=== PATIENT | male | born 1965 | race Caucasian/White ===

== ENCOUNTER 2025-03-28 10:46 | Emergency (ER) | payer OTHER, SELFPAY ==
[2025-03-28 10:55] VITALS: BP 134/82
--- NOTE | 2025-03-28 11:22 | ED.GENMED ---
History of Present Illness
General
Chief Complaint: Male Genito-Urinary Symptoms
Source: patient
Time Seen by Provider: 03/28/25 11:02
History of Present Illness
History of Present Illness:
59-year-old male with past medical history of previous prostate cancer status post prostatectomy presenting to the ER for priapism which he states has been since at least 3 AM last night, attempted Sudafed and phenylephrine at home which he states
did not help but has had this in the past when it normally has helped. States he was not in too much pain up until the last 20 minutes or so but did not take anything for pain prior to arrival. He denies any urinary symptoms at this time. He
normally follows with urology at [facility]
Past History
Past History
ED Past Medical History: Cancer and Psychiatric
ED Past Surgical History: Orthopedic and Urological
Social History
Tobacco: Non-smoker
Alcohol: Occasional
Drug: None
Personal: Partner
Living: with family
Review of Systems
Review of Systems
All Other Systems: ROS reviewed and negative except as documented in HPI and ROS
Phy Exam
Physical Exam
Physical Exam:
GENERAL: Alert , in no apparent distress
EYE: conjunctiva clear
Head: Normocephalic atraumatic
NECK: Supple,
ENT: mmm.
LUNGS: no acute respiratory distress
Genitourinary: Priapism noted, no testicular edema or erythema/tenderness, no hernia
NEUROLOGICAL: Alert and oriented
SKIN: Warm and dry, skin intact.
MUSCULOSKELETAL: well perfused.
PSYCH: Normal and appropriate interaction.
Scores
Heart Failure Risk
Heart Failure Risk Score: Not Applicable
Heart Score for Chest Pain Patients
STEMI patient?: Not applicable
Withdrawal Assessment of Alcohol
Withdrawal Assessment Completed?: Not applicable
Course
Orders/Labs/Results
Orders:
Orders
03/28/25 11:10
Ibuprofen [Motrin] 600 mg PO NOW STA
03/28/25 11:15
Phenylephrine [Dany-Synephrine] 5 mg 0.9% Sodium Chloride 50 ml [Nss] 19.5 ml Syringe [Syringe Non-Pump] 0 ml INTRACAVER ONCE PRN
Vital Signs
Initial and Last Documented VS:
Initial Vital Signs
Temp Pulse Resp BP Pulse Ox
98.2 F 86 16 134/82 98
03/28/25 10:55 03/28/25 10:55 03/28/25 10:55 03/28/25 10:55 03/28/25 10:55
Last Documented Vital Signs
Temp Pulse Resp BP Pulse Ox
98.2 F 59 16 117/54 99
03/28/25 10:55 03/28/25 13:14 03/28/25 13:14 03/28/25 13:14 03/28/25 13:14
MDM/Problems Addressed
Differential Diagnosis Includes:
Priapism
Phimosis
Paraphimosis
Medication side effect
No symptoms to suggest UTI/STI
MDM/Problems Addressed:
59-year-old male presenting to the ER for evaluation of priapism. Attempted medications that he has normally had relief with at home but today unfortunately did not have any relief. Will consult with urology who will likely need to come to the ER
to evaluate patient.
*Pulse Oximetry
SaO2: 98
Oxygen Mode of Delivery: Room air
Patient hypoxic: no
*Critical Care Note
Total Time (30-74mins, 75-104mins- exclusive of procedures): Not Applicable
Patient Management
Discussion with other providers: Manager Of Photography
Escalation/DeEscalation of care consider admission/obs:
1120: Urology to come evaluate the patient, requesting urology cart with lidocaine to the bedside, they are ordering phenylephrine.
Urology successfully treated the priapism and patient has full resolution of his symptoms. Stable for discharge home and outpatient management. Aware of return precautions to the ER
ED Attending Note
-
Portions of this chart may have been created with voice recognition software.� Occasional wrong word or��sound alike� substitutions may have occurred due to the inherent limitations of voice recognition software.
Discharge Plan
Departure
Patient Disposition: Home (Routine Discharge)
Date of Disposition: 03/28/25
Time of Disposition: 12:57
Patient with high blood pressure during this ER visit?: No
Discharge Problem:
Priapism
Instructions: Priapism
Prescriptions:
No Action
zolpidem 10 MG tablet
10 mg PO HS
azelastine 0.05 % drops
1 drp BOTH EYES BIDPRN PRN (Reason: ALLERGIES)
clonazepam 0.5 mg tablet
0.5 mg PO TIDPRN PRN (Reason: ANXIETY)
pravastatin 10 mg tablet
10 mg PO DAILY
ibuprofen 200 mg Tablet
400 mg PO Q8H PRN (Reason: PAIN)
pseudoephedrine HCl [Sudafed] 30 mg Tablet
120 mg PO ONCE PRN (Reason: ALLERGIES)
atomoxetine 10 mg capsule
10 mg PO DAILY
tadalafil 5 mg tablet
5 mg PO DAILY
buprenorphine-naloxone 2-0.5 mg film
1 film sublingual BID
Interventions
Interventions:
*Risk Screen - Suicide Last Done: 03/28/25 10:55
*General Assessment Last Done: 03/28/25 13:14
*Neglect/Abuse Screening Last Done: 03/28/25 10:55
*ED- Fall Risk Assessment Last Done: 03/28/25 11:40
*ED COVID-19 Vaccine History Last Done: 03/28/25 11:40
*Nursing Disposition Last Done: 03/28/25 13:14
ED-Male Genitourinary Assessment Last Done: 03/28/25 11:40
Discharge Date and Time
Print Language: TAJIK
[2025-03-28] MEDS: MOTRIN 600 MG PO (11:24)
--- NOTE | 2025-03-28 12:37 | CONS.URO ---
Consultation
-
Date/Time Consultation Performed: 03/28/25 1130
Performing Provider: Peffer
Reason for Consultation: Priapism
Medical History
History of Present Illness
59M hx Peyronies's disease, ED, using bimix injections
Prior hx of priapism managed at [facility]
Presented with erection for about 9 hours before he fell asleep last night
Prev responded to pseudafed which he took at home without success
Has needed intracorporal injections in the past
Hx of Peyronie's disease s/p Xiaflex
Past Medical History
Past Medical History: Other (ED, Peyronie's disease)
Past Surgical History: None
Family History
Family History: Reviewed & Not Pertinent
Allergies/Home Medications
Allergies
Allergy/AdvReac Type Severity Reaction Status Date / Time
No Known Allergies Allergy Verified 03/28/25 10:58
Home Medications
�Medication �Instructions �Recorded �Confirmed �Type
zolpidem 10 mg tablet 10 mg PO HS Sleep 09/20/20 03/28/25 History
atomoxetine 10 mg capsule 10 mg PO DAILY Mental 03/28/25 03/28/25 History
Health/Anxiety
azelastine 0.05 % eye drops 1 drp BOTH EYES BIDPRN PRN 03/28/25 03/28/25 History
ALLERGIES
buprenorphine 2 mg-naloxone 0.5 mg 1 film sublingual BID OPIOD USE 03/28/25 03/28/25 History
sublingual film DISORDER
clonazepam 0.5 mg tablet 0.5 mg PO TIDPRN PRN ANXIETY 03/28/25 03/28/25 History
ibuprofen 200 mg tablet 400 mg PO Q8H PRN PAIN 03/28/25 03/28/25 History
pravastatin 10 mg tablet 10 mg PO DAILY High Cholesterol 03/28/25 03/28/25 History
pseudoephedrine HCl 30 mg tablet 120 mg PO ONCE PRN ALLERGIES 03/28/25 03/28/25 History
(Sudafed)
tadalafil 5 mg tablet 5 mg PO DAILY Urinary Issue 03/28/25 03/28/25 History
Physical Exam
Vital Signs
Vital Signs
Temp Pulse Resp BP Pulse Ox
98.2 F 86 16 134/82 98
03/28/25 10:55 03/28/25 10:55 03/28/25 10:55 03/28/25 10:55 03/28/25 11:26
Physical Exam
General: Well Developed, Well Nourished and No Apparent Distress
Respiratory: Non Labored Respirations
GI: Soft and Non Tender
Genito-urinary: Other (painful erection)
Psych: Calm and Intact Judgement
Assessment / Plan
-
59M with ischemic priapism due to at home intracorporal injectable medications
- 16Ga angiocath placed into R corporal body with return of ischemic blood
- Saline irrigation performed to encourage detumescence
- Intracorporal injection of phenylephrine 250mcg/mL x4mL for total 1mg dose administered
- Observed for 1 hour, BP and HR normal and no recurrent erection
- Discharge
- Lower dose of bimix
- Avoid intercourse 2 weeks
Data Reviewed
-
Total Time Spent with Patient (in minutes): 80
[2025-03-28 13:14] VITALS: BP 117/54
== END 2025-03-28 13:14 | disposition home or self-care (01) ==
LOC: EMR 10:46
PROVIDERS: EMERGENCY PHYSICIAN Emergency Medicine; OTHER PHYSICIAN Urology
DX: N48.30 Priapism, unspecified (principal); Z85.46 Personal history of malignant neoplasm of prostate; Z90.79 Acquired absence of other genital organ(s)
CPT/HCPCS: 54220; 99284

== ENCOUNTER 2025-04-24 07:05 | Emergency (ER) | payer OTHER, SELFPAY ==
[2025-04-24 07:08] VITALS: BP 140/93
--- NOTE | 2025-04-24 07:20 | EDRN ---
Dr. Yen aware that the pt is in the room waiting to be seen, no new orders received at this time
--- NOTE | 2025-04-24 07:52 | EDRN ---
Yuri ALVES currently at the pts bedside
[2025-04-24 07:54] VITALS: BP 133/110
[2025-04-24 07:55] VITALS: BP 133/110; BMI 22.5
--- NOTE | 2025-04-24 08:04 | ED.GENMED ---
History of Present Illness
General
Chief Complaint: Male Genito-Urinary Symptoms
Source: patient
Exam Limitations: none
Time Seen by Provider: 04/24/25 07:57
History of Present Illness
History of Present Illness:
59-year-old male with remote history of prostate cancer measured at [facility], history of erectile dysfunction, priapism and pyrone's disease presents with sustained erection for the past approximately 5 to 6 hours. He took Sudafed at home.
It was painful at home and since waiting here in the waiting room he states his erection has improved slightly. He denies any significant pain currently. No other complaints at this time
Past History
Past History
ED Past Medical History: Cancer and Psychiatric
ED Past Surgical History: Orthopedic and Urological
Social History
Tobacco: Non-smoker
Alcohol: Occasional
Drug: None
Personal: Partner
Living: with family
Phy Exam
Physical Exam
Physical Exam:
General: Well-appearing male no acute respiratory distress
HEENT: Normal cephalic atraumatic
Abdomen soft nontender nondistended
exam: Semierect penis not tender to palpation
Course
Orders/Labs/Results
Orders:
Orders
04/24/25 08:21
Phenylephrine [Dany-Synephrine] 5 mg 0.9% Sodium Chloride 50 ml [Nss] 19.5 ml Syringe [Syringe Non-Pump] 0 ml INTRACAVER ONCE PRN
Vital Signs
Initial and Last Documented VS:
Initial Vital Signs
Temp Pulse Resp BP Pulse Ox
97.7 F 82 18 140/93 97
04/24/25 07:08 04/24/25 07:08 04/24/25 07:08 04/24/25 07:08 04/24/25 07:08
Last Documented Vital Signs
Temp Pulse Resp BP Pulse Ox
98.5 F 77 20 133/110 100
04/24/25 07:55 04/24/25 07:55 04/24/25 07:55 04/24/25 07:55 04/24/25 08:06
MDM/Problems Addressed
Differential Diagnosis Includes:
Patient with priapism. He has a history of such. He uses injections at home to obtain an erection. He tried Sudafed and notes slight improvement. He is required drainage in the past. He is required phenylephrine injections in the past. He was
most recently here March 28 and received phenylephrine. Reached out to urology
*Pulse Oximetry
SaO2: 100
Oxygen Mode of Delivery: Room air
Patient hypoxic: no
*Critical Care Note
Total Time (30-74mins, 75-104mins- exclusive of procedures): Not Applicable
Update Note
Update Note:
Initially reached out to urology who is going to come in and administer a phenylephrine injection. This was ordered. Patient was reevaluated multiple times and at this point the priapism has resolved on its own. Patient denies any current pain he
feels like everything is back to normal. Notified urology they held off on seeing him. Patient will follow-up with his urologist of record for adjustment of his injections that he takes.
ED Attending Note
-
Portions of this chart may have been created with voice recognition software.� Occasional wrong word or��sound alike� substitutions may have occurred due to the inherent limitations of voice recognition software.
Discharge Plan
Departure
Patient Disposition: Home (Routine Discharge)
Date of Disposition: 04/24/25
Time of Disposition: 08:58
Patient with high blood pressure during this ER visit?: No
Discharge Problem:
Priapism
Instructions: Priapism
Prescriptions:
No Action
zolpidem 10 MG tablet
10 mg PO HS
azelastine 0.05 % drops
1 drp BOTH EYES BIDPRN PRN (Reason: ALLERGIES)
clonazepam 0.5 mg tablet
0.5 mg PO TIDPRN PRN (Reason: ANXIETY)
pravastatin 10 mg tablet
10 mg PO DAILY
ibuprofen 200 mg Tablet
400 mg PO Q8H PRN (Reason: PAIN)
pseudoephedrine HCl [Sudafed] 30 mg Tablet
120 mg PO ONCE PRN (Reason: ALLERGIES)
atomoxetine 10 mg capsule
10 mg PO DAILY
tadalafil 5 mg tablet
5 mg PO DAILY
buprenorphine-naloxone 2-0.5 mg film
1 film sublingual BID
Referrals:
UNKNOWN - PT DOES,NOT KNOW [Family Provider]
Activity Restrictions/Additional Instructions:
Please follow-up with your urologist for potential dose adjustment of your injections. Return if needed
Interventions
Interventions:
*Risk Screen - Suicide Last Done: 04/24/25 07:55
*General Assessment Last Done: 04/24/25 07:55
*Neglect/Abuse Screening Last Done: 04/24/25 07:55
*ED- Fall Risk Assessment Last Done: 04/24/25 07:55
*ED COVID-19 Vaccine History Last Done: 04/24/25 07:55
ED-Male Genitourinary Assessment Last Done: 04/24/25 07:55
Discharge Date and Time
Print Language: NEPALI
== END 2025-04-24 09:02 | disposition home or self-care (01) ==
LOC: EMR 07:05
PROVIDERS: EMERGENCY PHYSICIAN Emergency Medicine
DX: N48.30 Priapism, unspecified (principal); Z85.46 Personal history of malignant neoplasm of prostate
CPT/HCPCS: 99281

== ENCOUNTER 2025-06-09 03:01 | Emergency (ER) | payer OTHER, SELFPAY ==
[2025-06-09] VITALS (9 sets, daily range): BP systolic 120–153; BP diastolic 83–101; BMI 20.8
[2025-06-09] MEDS: SUDAFED 60 MG PO (05:20)
[2025-06-09] MEDS: PHATP 5 UNIT INTRACAVER (06:00)
[2025-06-09] MEDS: DILAUDID 0.5 MG IV (06:12)
--- NOTE | 2025-06-09 06:35 | ED.GENMED ---
History of Present Illness
General
Chief Complaint: Male Genito-Urinary Symptoms
Source: patient and previous hospital records (Previous ED visits x 2 in March for similar complaint)
Exam Limitations: none
Time Seen by Provider: 06/09/25 05:07
Nursing documentation reviewed up to this point in time: agreed with
History of Present Illness
History of Present Illness:
This is a 59-year-old gentleman with prior history of prostate cancer, Peyronie's disease, ED, using Bimix injections, follows with specialist at [facility]. Prior history of priapism with ED visit here March 28 for similar complaint.
Required urgent urology evaluation, phenylephrine injections for detumescence. At that time recommended to decrease his Bimix dose and despite doing so returns April 24 with similar episode of priapism that resolved with Sudafed and ice.
He has done well since then until tonight when he injected his usual dose of by mix at 11 PM and has had persistent priapism since then. He did take a dose of Sudafed a few hours ago and has applied ice, thus far no improvement.
Past History
Past History
ED Past Medical History: Cancer (Prostate cancer), Psychiatric and Other (Peyronie's disease, erectile dysfunction, prior episodes of priapism after BiMix injections)
ED Past Surgical History: Orthopedic and Urological
Social History
Tobacco: Non-smoker
Alcohol: Occasional
Drug: None
Personal: Partner
Living: with family
Family History
Family History: Other (Noncontributory)
Phy Exam
Physical Exam
Physical Exam:
GENERAL: 59-year-old gentleman appears his stated age, awake and alert, appears mildly uncomfortable.
EYE: anicteric
NECK: Supple, nontender, no meningismus, no significant adenopathy.
ENT: oral mucosa is moist. No rhinorrhea.
CARDIAC: Regular rate and rhythm. no murmur.
LUNGS: Clear breath sounds bilaterally, no acute respiratory distress, no wheezes/rales/rhonchi
ABDOMEN: Soft, nondistended, without focal tenderness, no r/g, no cvat. normoactive BS.
: Painful erection
NEUROLOGICAL: Alert and oriented x3, no focal neuro deficits. Gait is randle and steady.
SKIN: Warm and dry, normal color, skin intact. No rash.
MUSCULOSKELETAL: No C/C/E. peripheral pulses are full and equal b/l. No palpable tenderness.
PSYCH: Normal and appropriate interaction.
Course
Orders/Labs/Results
Orders:
Orders
06/09/25 05:08
Pseudoephedrine [Sudafed] 60 mg PO NOW STA
06/09/25 05:[address] See Dose Instructions INTRACAVER NOW STA
06/09/25 05:37
Phenylephrine [Dany-Synephrine] 5 mg 0.9% Sodium Chloride 50 ml [Nss] 19.5 ml Syringe [Syringe Non-Pump] 0 ml INTRACAVER ONCE PRN
06/09/25 06:11
HYDROmorphone [Dilaudid] 0.5 mg .ROUTE .STK-MED ONE
06/09/25 06:12
HYDROmorphone [Dilaudid] 0.5 mg IV NOW STA
Vital Signs
Initial and Last Documented VS:
Initial Vital Signs
Temp Pulse Resp BP Pulse Ox
97.8 F 101 16 134/91 99
06/09/25 03:11 06/09/25 03:11 06/09/25 03:11 06/09/25 03:11 06/09/25 03:11
Last Documented Vital Signs
Temp Pulse Resp BP Pulse Ox
97.7 F 74 20 136/87 99
06/09/25 05:19 06/09/25 06:15 06/09/25 06:15 06/09/25 06:15 06/09/25 06:00
MDM/Problems Addressed
Differential Diagnosis Includes:
Patient presents with painful erection/priapism since 11 PM after by next injection. Similar episode of priapism in the past.
Thus far no improvement after dose of Sudafed at home and localized.
Will continue ice, give an additional dose of Sudafed and will urgently consult urology.
MDM/Problems Addressed:
Acute priapism
Chronic conditions affecting care:
Prior history of prostate cancer, erectile dysfunction, Peyronie's disease
Acute Exacerbation and/or Progression of Chronic Illness:
Recurrent priapism related to home intra corporal injectable medication
*Pulse Oximetry
SaO2: 99
Oxygen Mode of Delivery: Room air
Patient hypoxic: no
*Critical Care Note
Total Time (30-74mins, 75-104mins- exclusive of procedures): Not Applicable
Update Note
Update Note:
05:20
Urology, Dr. Sorto notified.
Will evaluate at bedside. Phenylephrine ordered, to be mixed by pharmacy
ED Attending Note
-
Portions of this chart may have been created with voice recognition software.� Occasional wrong word or��sound alike� substitutions may have occurred due to the inherent limitations of voice recognition software.
Discharge Plan
Departure
Discharge Problem:
acute priapism
Instructions: Priapism
Prescriptions:
No Action
zolpidem 10 MG tablet
10 mg PO HS
azelastine 0.05 % drops
1 drp BOTH EYES BIDPRN PRN (Reason: ALLERGIES)
clonazepam 0.5 mg tablet
0.5 mg PO TIDPRN PRN (Reason: ANXIETY)
pravastatin 10 mg tablet
10 mg PO DAILY
ibuprofen 200 mg Tablet
400 mg PO Q8H PRN (Reason: PAIN)
pseudoephedrine HCl [Sudafed] 30 mg Tablet
120 mg PO ONCE PRN (Reason: ALLERGIES)
atomoxetine 10 mg capsule
10 mg PO DAILY
tadalafil 5 mg tablet
5 mg PO DAILY
buprenorphine-naloxone 2-0.5 mg film
1 film sublingual BID
Referrals:
UNKNOWN,NO INTERVIEW [Family Provider]
Interventions
Interventions:
*Risk Screen - Suicide Last Done: 06/09/25 03:14
*General Assessment Last Done: 06/09/25 03:14
*Neglect/Abuse Screening Last Done: 06/09/25 03:14
*ED- Fall Risk Assessment Last Done: 06/09/25 03:14
*ED COVID-19 Vaccine History Last Done: 06/09/25 03:14
*ED Influenza Vaccine History Last Done: 06/09/25 03:14
ED-Male Genitourinary Assessment Last Done: 06/09/25 03:46
Discharge Date and Time
Print Language: THAI
--- NOTE | 2025-06-09 07:55 | CON.MD ---
Consultation - Medical
-
see dictated note
pt with recurrent priapsim
verbal consent obtained for aspiration/inj
under sterile conditions- right corporal body accessed- 30cc of old blood aspirated- 1ml of phenyleph mix injected slowly while pt on monitor
tolerated well
pt observe for 1hr- penis soft- small hematoma
REVIEWED OPTIONS WITH PT THIS IS A RECURRENT PROBLEMS AND THE RISK OF CONTINUED PRESENTATION WITH PRIAPISM
he will review with established urologist in [facility]
Consultation
-
Date/Time Consultation Requested: 06/09/25 at 5:15am
Date/Time Consultation Performed: 06/09/25 at 5:45am
Requesting Provider: Dr Coyle
Performing Provider: Dr Sorto
Reason for Consultation: priapism
== END 2025-06-09 08:21 | disposition home or self-care (01) ==
LOC: EMR 03:01
PROVIDERS: EMERGENCY PHYSICIAN Emergency Medicine; OTHER PHYSICIAN Specialist
DX: N48.30 Priapism, unspecified (principal); Z85.46 Personal history of malignant neoplasm of prostate; Z90.79 Acquired absence of other genital organ(s); Z98.1 Arthrodesis status
CPT/HCPCS: 54220; 96374; 99284